=== PATIENT | female | born 1940 | race Caucasian/White ===

== ENCOUNTER 2020-03-02 22:07 | Emergency (ER) | payer MEDICARE ==
[~2020-03-02] VITALS: Ht 162.6 cm; Wt 83.9 kg
[2020-03-02] MEDS ORDERED: NAPROXEN500 MG PO (22:30)
--- OUTSIDE RECORDS SUMMARY | 2020-03-02 23:54 | XMS ---
PreManage Notification: HANNA ZUNIGA Security [employer] Events No recent Security Events currently on file CRITERIA MET - [facility] CARE PROVIDERS There are no care providers on record at this time. Víctor has no Care Guidelines for this patient. Yasir VISIT COUNT (12 MO.) 1 KRISTINE Castillo TOTAL 1 NOTE: Visits indicate total known visits. ED/C VISIT TRACKING (12 MO.) 03/02/2020 22:08 KRISTINE Ramirez [place] TYPE: Emergency COMPLAINT: - BACK PAIN, NON INJ INPATIENT VISIT TRACKING (12 MO.) No inpatient visits to display in this time frame [email or web address]
== END 2020-03-03 00:01 | disposition home or self-care (01) ==
LOC: ED 22:07
DX: M54.5 Low back pain (principal); I10 Essential (primary) hypertension; J44.9 Chronic obstructive pulmonary disease, unspecified; F17.200 Nicotine dependence, unspecified, uncomplicated; Z79.899 Other long term (current) drug therapy; Z88.8 Allergy status to other drugs, medicaments and biological substances
CPT/HCPCS: 74176; 81001; 99284-25

== ENCOUNTER 2020-04-05 15:55 | Emergency (ER) | payer MEDICARE ==
[~2020-04-05] VITALS: Ht 162.6 cm; Wt 81.6 kg
[~2020-04-05 15:55] MED LIST: NAPROXEN500 MG PO
--- OUTSIDE RECORDS SUMMARY | 2020-04-05 15:58 | XMS ---
PreManage Notification: HANNA ZUNIGA Security [employer] Events No recent Security Events currently on file CRITERIA MET - [facility] CARE PROVIDERS There are no care providers on record at this time. Víctor has no Care Guidelines for this patient. Yasir VISIT COUNT (12 MO.) 2 KRISTINE Castillo TOTAL 2 NOTE: Visits indicate total known visits. ED/C VISIT TRACKING (12 MO.) 04/05/2020 15:55 KRISTINE Ramirez OR TYPE: Emergency COMPLAINT: - TRIP OVER DOG, INJURED TOE ON LEFT FOOT 03/02/2020 22:08 KRISTINE Ramirez OR TYPE: Emergency COMPLAINT: - BACK PAIN, NON INJ DIAGNOSES: - Low back pain - Allergy status to other drugs, medicaments and biological substances - Low back pain - Other senior living (current) drug therapy - Essential (primary) hypertension - Chronic obstructive pulmonary disease, unspecified - Nicotine dependence, unspecified, uncomplicated - Cervicalgia INPATIENT VISIT TRACKING (12 MO.) No inpatient visits to display in this time frame [email or web address]
[2020-04-05] MEDS ORDERED: ULTRA-LIGHT RO1 EACH MISC (17:44)
[2020-04-05] MEDS ORDERED: NORCO 5-325 TA1 EACH PO (17:44)
== END 2020-04-05 18:40 | disposition home or self-care (01) ==
LOC: ED 15:55
DX: S92.312A Displaced fracture of first metatarsal bone, left foot, initial encounter for closed fracture (principal); S92.402A Displaced unspecified fracture of left great toe, initial encounter for closed fracture; I10 Essential (primary) hypertension; J44.9 Chronic obstructive pulmonary disease, unspecified; F17.200 Nicotine dependence, unspecified, uncomplicated; Z88.8 Allergy status to other drugs, medicaments and biological substances; Z79.899 Other long term (current) drug therapy; W01.0XXA Fall on same level from slipping, tripping and stumbling without subsequent striking against object, initial encounter
CPT/HCPCS: 73630; 99283-25

== ENCOUNTER 2021-10-17 01:43 | Emergency (ER) | payer MEDICARE ==
[~2021-10-17] VITALS: Ht 162.6 cm; Wt 81.6 kg
[~2021-10-17 01:43] MED LIST changes: +NORCO 5-325 TA1 EACH PO; +ULTRA-LIGHT RO1 EACH MISC
[2021-10-17] MEDS ORDERED: AMLODIPINE BESY10 MG PO (02:02)
[2021-10-17] MEDS ORDERED: LISINOPRIL-HCT1 EACH PO (02:02)
== END 2021-10-17 04:40 | disposition home or self-care (01) ==
LOC: ED 01:43
DX: T78.3XXA Angioneurotic edema, initial encounter (principal); I10 Essential (primary) hypertension; J44.9 Chronic obstructive pulmonary disease, unspecified; F17.200 Nicotine dependence, unspecified, uncomplicated; Z88.8 Allergy status to other drugs, medicaments and biological substances; Z79.899 Other long term (current) drug therapy
CPT/HCPCS: 96374; 96375; 99284-25; J1200; J2930

== ENCOUNTER 2024-01-15 14:03 | Observation (INO) | payer MEDICARE ==
[~2024-01-15] VITALS: Ht 162.6 cm; Wt 72.1 kg
[~2024-01-15 14:03] MED LIST changes: +AMLODIPINE BESY10 MG PO; +CHLORTHALIDONE25 MG PO; +FLUOXETINE HCL40 MG PO; +HYDROCODON-ACE1 EA10 PO; +LISINOPRIL-HCT1 EACH PO; +QUETIAPINE FUMA50 MG PO; +SPIRONOLACTONE50 MG PO
[2024-01-15 14:21] LABS: BILIRUBIN, URINE NEGATIVE (negative); BLOOD/HGB, URINE NEGATIVE (Negative); KETONE, URINE NEGATIVE (Negative); LEUK ESTERASE, URINE NEGATIVE (negative); NITRITE, URINE NEGATIVE (negative)
[2024-01-15 16:34] LABS: HEMATOCRIT 38.8 % (35.0-50.0); HEMOGLOBIN 12.7 g/dL (12.0-18.0); MCH 29.1 (27-36); MCHC 32.9 g/dl (30-36); MCV 88.7 fl (81-99); PLATELET COUNT 260 K/uL (140-440); RBC 4.37 M/ul (4.3-5.7); RDW 14.3 (10.5-15.0)
[2024-01-15 16:44] LABS: LYMPHOCYTES, MANUAL DIFF 14; MONOCYTES, MANUAL DIFF 13; NEUTROPHILS, MANUAL DIFF 73
[2024-01-15 16:48] LABS: ALBUMIN 3.4 g/dL (3.4-5.0); ALBUMIN/GLOBULIN RATIO 0.97 (1.1-2.4); ANION GAP 13.9 (7-21); BILIRUBIN, TOTAL 0.5 ng/dL (0.2-1.0); BUN/CREATININE RATIO 20.98 (6.0-28.6); CALCIUM 9.1 mg/dL (8.5-10.1); CREATININE, SERUM 0.81 mg/dL (0.55-1.02); POTASSIUM 2.9 mmol/L (3.5-5.1); PROTEIN, TOTAL 6.9 g/dL (6.4-8.2)
[2024-01-15] MEDS ORDERED: POTASSIUM CHLORIDE 10 MEQ TABCR PO ONE (17:00)
[2024-01-15] MEDS ORDERED: ACETAMINOPHEN 325 MG TAB PO PRN (17:30)
[2024-01-15] MEDS ORDERED: ondansetron HCL 4 MG/2 ML VIAL IV PRN (17:30)
--- NOTE | 2024-01-15 18:06 | NUR ---
PT TO FLOOR VIA STRETCHER WITH THIS RN AND JENNIFER CARPENTER. PT SCOOTED OVER ON SLIDER SHEET. ASSESSMENT COMPLETE. TRIED TO ORDER DINNER BUT NO ANSWER. GIVEN SANDWICH BOX.
[2024-01-15 18:13] VITALS: BP 132/67
--- NOTE | 2024-01-15 18:47 | NUR ---
PT RESTING IN BED. FINISHED WITH MEAL. INCONT OF URINE. BRIEF CHANGED. DENIES ANY NEEDS. ASSESSMENT COMPLETE. CALL LIGHT IN REACH.
--- NOTE | 2024-01-15 18:54 | NUR ---
[place] PLACED. SCD ON UNAFFECTED LEG. PT DENIES ANY NEEDS. CALL LIGHT IN REACH
--- NOTE | 2024-01-15 19:15 | NUR ---
REPORT RECEIVED FROM JACOB PLUMMER. pt RESTING IN THE BED WITH RIGHT KNEE IMOBILIZER ON. BOARD UPDATED. pt DENIES ANY OTHER NEEDS AT THIS THIS TIME. CALL LIGHT WITHIN REACH.
--- NOTE | 2024-01-15 20:50 | NUR ---
ASSESSMENT AND VITAL SIGNS DONE. pt RESTING IN THE BED. PURE WICK CHECKED AND READJUSTED FOR COMFORT. RIGHT KNEE IMOBILIZER IS ON. pt DENIES ANY NEEDS AT THIS TIME. CALL LIGHT WITHIN REACH.
[2024-01-15 20:54] VITALS: BP 113/52
[2024-01-15 20:57] VITALS: BP 113/52
[2024-01-15] MEDS ORDERED: MELATONIN 3 MG TAB PO PRN (21:00)
--- NOTE | 2024-01-15 23:33 | NUR ---
pt RESTING IN THE BED WITH EYES CLOSED. RR EVEN AND UNLABORED. CALL LIGHT WITHIN REACH.
[2024-01-16 01:50] VITALS: BP 108/60
--- NOTE | 2024-01-16 02:05 | NUR ---
END PACKER WENT IN TO DO 0200 VS AND CHECK THE OUTPUT OF THE PURE WICK. THERE WAS NO OUTPUT SO END PACKER CHECKED THE BRIEF. THE PURE WICK WAS OUT OF POSSITION AND THE BRIEF WAS WET. END PACKER CHANGED PT AND REPOSSITED THE PURE WICK. END PACKER'S BOOSTED PATIENT IN BED WELL.
[2024-01-16 05:10] VITALS: BP 132/68
[2024-01-16 05:17] VITALS: BP 132/68
--- NOTE | 2024-01-16 05:20 | NUR ---
ASSESSMENT AND VITAL SIGNS DONE. PURE WICK STILL IN PLACE. pt C/O 09/12 PAIN. PRN PAIN MEDICATION ADMINISTERED. pt DENIES ANY OTHER NEEDS AT THIS TIME. CALL LIGHT TIME.
[2024-01-16 05:31] LABS: HEMATOCRIT 38.3 % (35.0-50.0); HEMOGLOBIN 12.4 g/dL (12.0-18.0); MCH 29.2 (27-36); MCHC 32.4 g/dl (30-36); MCV 89.9 fl (81-99); PLATELET COUNT 267 K/uL (140-440); RBC 4.26 M/ul (4.3-5.7); RDW 14.1 (10.5-15.0)
[2024-01-16 05:46] LABS: BANDS, MANUAL DIFF 3; EOSINOPHILS, MANUAL DIFF 1; LYMPHOCYTES, MANUAL DIFF 36; MONOCYTES, MANUAL DIFF 8; NEUTROPHILS, MANUAL DIFF 52
[2024-01-16 05:49] LABS: ALBUMIN 3.1 g/dL (3.4-5.0); ALBUMIN/GLOBULIN RATIO 0.89 (1.1-2.4); ANION GAP 11.2 (7-21); BILIRUBIN, TOTAL 0.6 ng/dL (0.2-1.0); BUN/CREATININE RATIO 19.17 (6.0-28.6); CALCIUM 8.8 mg/dL (8.5-10.1); CREATININE, SERUM 0.73 mg/dL (0.55-1.02); PHOSPHORUS, INORGANIC 3.5 mg/dL (2.5-4.9); POTASSIUM 3.2 mmol/L (3.5-5.1); PROTEIN, TOTAL 6.6 g/dL (6.4-8.2)
[2024-01-16] MEDS ORDERED: POTASSIUM CHLORIDE 10 MEQ TABCR PO ONE (07:45)
--- NOTE | 2024-01-16 08:47 | NUR ---
MORNING ASSESSMENT IS COMPLETE. PATIENT IS SITTING UP IN BED TO EAT BREAKFAST, PO KCL GIVEN, NICOTINE PATCH TO LEFT ARM. PATIENT DENIES PAIN, NO OTHER NEEDS AT THIS TIME.
[2024-01-16] MEDS ORDERED: NICOTINE 21 MG/24 HR 1 EA TDSY TD SCH (09:00)
[2024-01-16 09:59] VITALS: BP 101/47
--- NOTE | 2024-01-16 10:26 | NUR ---
MED REC COMPLETE
--- NOTE | 2024-01-16 10:30 | NUR ---
UR CLINICAL REVIEW: 2 MN FOR VERSALUS-MEETS OBS CRITERIA MEDICARE OBS 01/15/24 @ 1405 ORDER MATCHES REG NO AUTH REQUIRED PER MEDICARE GUIDELINES DISCHARGE TO HOME WHEN FAMILY IS AVAILABLE TO MONITOR PATIENT. 01/17/24
[2024-01-16] MEDS ORDERED: FLUOXETINE HCL 20 MG CAP PO SCH (10:45)
--- NOTE | 2024-01-16 11:01 | NUR ---
CALLED DAUGHTER, LITO, NO ANSWER. MESSAGE LEFT TO CALL BACK WITH CALL BACK NUMBER PROVIDED.
--- NOTE | 2024-01-16 11:35 | NUR ---
SPOKE WITH DAUGHTER REGARDING DC. PLAN TO DC TO HOME THIS EVENING WHEN DAUGHTER RETURNS TO [place]. DISCUSSED [employer], HOME HEALTH PT/OT AND NEED FROM FRONT WALKER.
[2024-01-16] MEDS ORDERED: PHARMACY RENAL DOSE ADJUSTMENT 1 DOSE MISC PO SCH (12:00)
--- NOTE | 2024-01-16 13:03 | NUR ---
PRESCRIPTION, FACESHEET AND PROG NOTES FAXED TO [facility] FOR FRONT-WHEELED WALKER. ORDERS/FACE TO FACE, FACESHEET, PT/OT NOTES AND PROG NOTES FAXED TO [facility].
[2024-01-16 13:48] VITALS: BP 138/60
--- NOTE | 2024-01-16 13:55 | NUR ---
PATIENT WITH LOW GRADE TEMP, DR. LEAL NOTIFIED.
[2024-01-16 14:41] LABS: INFLUENZA B NAA NEGATIVE (NEGATIVE); RESPIRATORY SYNCYTIAL VIR NAA NEGATIVE (NEGATIVE)
[2024-01-16 15:07] VITALS: BP 138/60
--- NOTE | 2024-01-16 18:06 | NUR ---
PATIENT IS SITTING UP IN CHAIR, ANXIOUSLY AWAITING HER DAUGHTERS ARRIVAL.
[2024-01-16] MEDS ORDERED: QUETIAPINE FUMARATE 25 MG TAB PO SCH (21:00)
== END 2024-01-16 18:35 | disposition home or self-care (01) ==
LOC: ED 14:03 → MS 14:05
PROVIDERS: Emergency Medicine; ADMIT Family Medicine; ATTEND Family Medicine
DX: S82.001A Unspecified fracture of right patella, initial encounter for closed fracture (principal); E87.6 Hypokalemia; D72.829 Elevated white blood cell count, unspecified; I10 Essential (primary) hypertension; J44.9 Chronic obstructive pulmonary disease, unspecified; F17.200 Nicotine dependence, unspecified, uncomplicated; Z88.8 Allergy status to other drugs, medicaments and biological substances; Z79.899 Other long term (current) drug therapy; W18.30XA Fall on same level, unspecified, initial encounter
CPT/HCPCS: 36415; 71045; 73560; 80053; 81003; 83735; 84100; 85025; 87502; 97110; 97161; 97166; 97530; 99284-25; A9270; G0378; U0002

== ENCOUNTER 2025-01-30 04:16 | Emergency (ER) | payer MEDICARE ==
[~2025-01-30] VITALS: Ht 162.6 cm; Wt 70.8 kg
[2025-01-30] MEDS ORDERED: TRAMADOL HCL 50 MG TAB PO ONE (04:30)
[2025-01-30] MEDS ORDERED: TRAMADOL HCL50 MG PO (04:49)
[2025-01-30] MEDS ORDERED: TRAMADOL HCL 50 MG HOME.PACK PO ONE (05:00)
[2025-01-30 05:48] VITALS: BP 142/70
== END 2025-01-30 05:49 | disposition home or self-care (01) ==
LOC: ED 04:16
DX: S52.572A Other intraarticular fracture of lower end of left radius, initial encounter for closed fracture (principal); I10 Essential (primary) hypertension; J44.9 Chronic obstructive pulmonary disease, unspecified; F17.200 Nicotine dependence, unspecified, uncomplicated; Z91.048 Other nonmedicinal substance allergy status; Z88.8 Allergy status to other drugs, medicaments and biological substances; Z79.899 Other long term (current) drug therapy; W19.XXXA Unspecified fall, initial encounter
CPT/HCPCS: 29125; 73110; 99283; A9270

== ENCOUNTER 2025-02-01 15:18 | Emergency (ER) | payer MEDICARE ==
[~2025-02-01] VITALS: Ht 162.6 cm; Wt 70.8 kg
[~2025-02-01 15:18] MED LIST changes: +TRAMADOL HCL50 MG PO
[2025-02-01] MEDS ORDERED: FLUCONAZOLE150 MG PO (18:41)
[2025-02-01] MEDS ORDERED: NYAMYC15 GM TOP (18:41)
[2025-02-01] MEDS ORDERED: HYDROCODON-ACE1 EA10 PO (18:41)
[2025-02-01] MEDS ORDERED: FLUCONAZOLE 150 MG TAB PO ONE (18:45)
[2025-02-01 18:55] VITALS: BP 112/78
== END 2025-02-01 18:55 | disposition home or self-care (01) ==
LOC: ED 15:18
DX: S52.502D Unspecified fracture of the lower end of left radius, subsequent encounter for closed fracture with routine healing (principal); W19.XXXD Unspecified fall, subsequent encounter; B37.2 Candidiasis of skin and nail; I10 Essential (primary) hypertension; J44.9 Chronic obstructive pulmonary disease, unspecified; F03.90 Unspecified dementia, unspecified severity, without behavioral disturbance, psychotic disturbance, mood disturbance, and anxiety; F17.200 Nicotine dependence, unspecified, uncomplicated; Z88.8 Allergy status to other drugs, medicaments and biological substances; Z79.899 Other long term (current) drug therapy
CPT/HCPCS: 70450; 73030; 99284-25

== ENCOUNTER 2025-02-10 06:40 | Day surgery (SDC) | payer MEDICARE ==
[~2025-02-10] VITALS: Ht 162.6 cm; Wt 70.4 kg
[~2025-02-10 06:40] MED LIST changes: +DEXAMETHASONE SOD PHOS 4 MG/ML VIAL ONE; +FLUCONAZOLE150 MG PO; +LACTATED RINGER'S 1,000 ML IV SCH; +LIDOCAINE HCL 2% 5 ML SDV ONE; +NYAMYC15 GM TOP; +Ropivacaine HCl 0.5% 30 ML VIAL ONE; +SODIUM CHLORIDE 0.9% 20 ML IV ONE
[2025-02-10] MEDS ORDERED: IBLOOD GLUCOSE TEST STRIP 1 EA TEST VI PRN ×2 (07:00→09:15)
[2025-02-10] MEDS ORDERED: DEXTROSE 5% IV SCH (07:00)
[2025-02-10] MEDS ORDERED: LIDOCAINE HCL 1% 5 ML SDV INJ ONE (07:00)
[2025-02-10] MEDS ORDERED: CEFAZOLIN SODIUM IV SCH (07:00)
[2025-02-10 07:07] VITALS: BP 140/69
--- NOTE | 2025-02-10 07:24 | NUR ---
PT NOT AVAILABLE FOR VISIT. PROVIDED PRAYER.
--- NOTE | 2025-02-10 07:29 | NUR ---
PT NOT AVAILABLE FOR VISIT. PROVIDED PRAYER.
[2025-02-10] MEDS ORDERED: HYDROCODONE/ACETA 5/325 TAB PO PRN (08:15)
[2025-02-10] MEDS ORDERED: HYDROCODON-ACE1 EA10 PO (09:12)
[2025-02-10] MEDS ORDERED: fentaNYL citrate 50 MCG/ML SDV IV PRN (09:15)
[2025-02-10] MEDS ORDERED: MIDAZOLAM HCL 2 MG/2 ML VIAL IV PRN (09:15)
[2025-02-10] MEDS ORDERED: NALOXONE HCL 0.4 MG SYR IV PRN (09:15)
--- NOTE | 2025-02-10 09:26 | NUR ---
02/10/25 0926 Alley Montez 0911 PT TO PACU ORAL AIRWAY IN PLACE. BREATHING REGULAR AND NOT LABORED.
--- NOTE | 2025-02-10 09:47 | NUR ---
PT ARRIVES TO DS VIA STRETCHER FROM PACU. PT IS BACK TO BASELINE AND ASKING QUESTIONS APPROPRIATELY. PT STATES NO PAIN AT THIS TIME AND IS SLIGHTLY ABLE TO WIGGLE PINKIE AND FINGER NEXT TO IT. PT TOLERATING JELLO AND ICE WATER WITHOUT DIFFICULTY SWALLOWING. CALL LIGHT WITHIN REACH, DOOR OPEN D/T PT HX OF DEMENTIA AND PT VISIBLE FROM NURSES STATION. DAUGHTER LITO CALLED AND UPDATED, ADVISED TO BRING SLING FOR PT D/T NERVE BLOCK LIMITING MOTOR SKILL IN LFT ARM. PT DAUGHTER STATES VERBAL UNDERSTANDING. PT STATES NO FURTHER NEEDS OR QUESTIONS AT THIS TIME.
[2025-02-10 09:50] VITALS: BP 147/62
[2025-02-10 10:31] VITALS: BP 127/73
--- NOTE | 2025-02-10 10:45 | NUR ---
IN PT ROOM FOR DC EDUCATION. PT AND PT DAUGHTER STATE VERBAL UNDERSTANDING AND NO FURTHER QUESTIONS OR NEEDS AT THIS TIME. ICE PACK PROVIDED, SLING IN PLACE, ICE WATER SENT HOME W/PT. PT OFF OF UNIT VIA WC TO PASSENGER SIDE OF VEHICLE. PT DAUGHTER ASSISTS PT W/TRANSITION TO SEAT PER "WHAT WORKS FOR THEM". ALL BELONGINGS IN PT POSSESSION. PT AND PT DAUGHTER STATE NO FURTHER NEEDS AT THIS TIME.
--- NOTE | 2025-02-10 14:35 | NUR ---
PT DAUGHTER ARRIVES AND BRINGS SLING. VS AND ASSESSMENT PERFORMED. NO ACUTE CHANGES FROM PREVIOUS ASSESSMENT. PT GETTING DRESSED W/DAUGHTER ASSISTANCE. CALL LIGHT WITHIN REACH.
[2025-02-10] MEDS ORDERED: SEVOFLURANE 250 ML BTL INH ONE (16:56)
--- NOTE | 2025-02-10 23:23 | EKG ---
[facility] [address] [place] [address] Signed Sinus rhythm with occasional premature ventricular complexes Otherwise normal ECG No previous ECGs available Confirmed by Seymour Leal MD () on 02/10/2025 11:23:29 PM Electronically Signed By: SEYMOUR LEAL MD 02/10/25 2323 PATIENT NAME: HANNA ZUNIGA JASEN Electrocardiogram DATE OF : 44 PHYSICIAN: SEYMOUR LEAL MD REPORT #: [id number] REPORT IS CONFIDENTIAL AND NOT TO BE RELEASED WITHOUT AUTHORIZATION
--- NOTE | 2025-02-12 07:54 | OR ---
[facility] [address] [place] [address] Signed DATE OF OPERATION: 02/10/2025 SURGEON: Lulu Montez MD PREOPERATIVE DIAGNOSIS: Comminuted displaced left distal radius fracture. POSTOPERATIVE DIAGNOSIS: Comminuted displaced left distal radius fracture. PROCEDURE PERFORMED: Open reduction and internal fixation, left distal radius. IGNITION MECHANIC: None. ANESTHESIA: General. BLOOD LOSS: None. TOURNIQUET TIME: 24 minutes. IMPLANTS: Synthes bridge plate with eight screws and one 1.6 K-wire. BRIEF HISTORY: Sarah is an 84-year-old lady with significant dementia who suffered a ground level fall with a displaced distal radius fracture. She had significant osteopenia as well. She took off her splint multiple times and further displaced the fracture. Risks and benefits of operative treatment with a bridge plate were discussed with her and her daughter. They elected to proceed. DESCRIPTION OF PROCEDURE: Once the consent was obtained, she was taken to the operating room. After adequate anesthesia, she was placed on operating room table. All downside pressure points were well padded. The arm was prepped and draped in a standard sterile fashion. A sterile tourniquet was applied. The fracture was closed reduced and pinned with 1.6 mm K-wire. Electronically Signed By: LULU MONTEZ MD 02/12/25 0754 PATIENT NAME: SARAH ZUNIGA OPERATIVE REPORT DATE OF : 44 REPORT #: [id number] PHYSICIAN: LULU MONTEZ MD PCP: LESLYE HILLIARD NP REPORT IS CONFIDENTIAL AND NOT TO BE RELEASED WITHOUT AUTHORIZATION [facility] [address] [place], [place] [address] Signed The bridge plate was then overlaid. The distal radius and hand and the two incisions were marked out. The arm was exsanguinated using Esmarch bandage. Tourniquet inflated to 200 mmHg. The two incisions were incised, carried through skin and subcutaneous tissue and directly down onto the radius dorsally and the dorsal metacarpal. The plate was then tunneled subcutaneously from the proximal to the distal incision and then aligned under image intensifier. One screw was placed distal, one placed proximal. Alignment was found to be adequate. Screw holes were drilled and appropriate length screws were placed. Final radiographs showed good reduction and alignment of the plate. Screw lengths were all appropriate. Wounds were then copiously irrigated with normal saline, closed with 3-0 Stratafix and sealed with LiquiBand and Steri-Strips. Sterile cast padding was applied and a radial gutter splint was applied. She tolerated this procedure well. All sponge, needle, and instrument counts were correct. Lulu Montez MD BA/ENRIQUE /[id number] Copies: ~ Electronically Signed By: LULU MONTEZ MD 02/12/25 0754 PATIENT NAME: SARAH ZUNIGA OPERATIVE REPORT DATE OF : 44 REPORT #: [id number] PHYSICIAN: LULU MONTEZ MD PCP: LESLYE HILLIARD NP REPORT IS CONFIDENTIAL AND NOT TO BE RELEASED WITHOUT AUTHORIZATION
== END 2025-02-10 10:50 | disposition home or self-care (01) ==
LOC: DS 06:40
PROVIDERS: ATTEND Specialist
PROC: 0PSJ04Z Reposition Left Radius with Internal Fixation Device, Open Approach (ICD-10-PCS; principal; 2025-02-10 09:00)
DX: S52.572A Other intraarticular fracture of lower end of left radius, initial encounter for closed fracture (principal); W18.30XA Fall on same level, unspecified, initial encounter; I10 Essential (primary) hypertension; F03.90 Unspecified dementia, unspecified severity, without behavioral disturbance, psychotic disturbance, mood disturbance, and anxiety; M85.80 Other specified disorders of bone density and structure, unspecified site; F17.200 Nicotine dependence, unspecified, uncomplicated; Z79.899 Other long term (current) drug therapy; Z88.8 Allergy status to other drugs, medicaments and biological substances
CPT/HCPCS: 01830; 64417; 73100; 93005; 93010; C1713; J0688; J1100; J2003; J2405; J2704; J2795; J7121

== ENCOUNTER 2025-02-21 07:20 | Inpatient (IN) | payer MEDICARE ==
[~2025-02-21] VITALS: Ht 162.6 cm; Wt 70.0 kg
[2025-02-21] VITALS (11 sets, daily range): BP systolic 113–161; BP diastolic 58–88
[~2025-02-21 07:20] MED LIST changes: +CEFAZOLIN SODIUM 2 GM in SODIUM CHLORIDE 0.9% 100 ML IV SCH; -DEXAMETHASONE SOD PHOS 4 MG/ML VIAL ONE; +IBLOOD GLUCOSE TEST STRIP 1 EA TEST VI PRN; +LIDOCAINE HCL 1% 5 ML SDV INJ ONE; -LIDOCAINE HCL 2% 5 ML SDV ONE; -Ropivacaine HCl 0.5% 30 ML VIAL ONE; -SODIUM CHLORIDE 0.9% 20 ML IV ONE
[2025-02-21] MEDS ORDERED: Ropivacaine HCl 0.5% 30 ML VIAL ONE (09:27)
[2025-02-21] MEDS ORDERED: SODIUM CHLORIDE 0.9% 20 ML IV ONE (09:27)
[2025-02-21] MEDS ORDERED: LIDOCAINE HCL 2% 5 ML SDV ONE ×2 (09:27→10:18)
--- NOTE | 2025-02-21 09:59 | NUR ---
tunnel heading inspector ap in to do block l arm.
[2025-02-21] MEDS ORDERED: fentaNYL citrate 100 MCG/2 ML VIAL ONE (10:20)
[2025-02-21] MEDS ORDERED: HYDROmorphone HCL 1 MG/ML SYR IV PRN (11:00)
[2025-02-21] MEDS ORDERED: IBLOOD GLUCOSE TEST STRIP 1 EA TEST VI PRN (11:00)
[2025-02-21] MEDS ORDERED: NALOXONE HCL 0.4 MG SYR IV PRN (11:00)
[2025-02-21] MEDS ORDERED: fentaNYL citrate 50 MCG/ML SDV IV PRN (11:00)
[2025-02-21] MEDS ORDERED: HYDROCODONE/ACETA 7.5/325 TAB PO PRN (11:30)
--- NOTE | 2025-02-21 12:10 | NUR ---
[facility], AMBULATES TO RESTROOM WITH 1PA, VOIDS, AMBULATES TO BED AND LAYS IN BED INDEPENDENTLY. 2L O2 VIA NC IN PLACE D/T O2 SATURATION BEING IN LOW 80s ON RA. PT HAS HARSH PRODUCTIVE COUGH. SCDs IN PLACE. ICE TO LUE PER ORDER, LUE ELEVATED ON PILLOW. HEEL PROTECTORS IN PLACE, CPOX IN PLACE. PT DENIES CP AND NAUSEA, DENIES PAIN IN LUE. PT STATES SHE IS "ITCHY" ALL OVER HER BODY, EDUCATION ON EFFECTS OF ANASTHESIA, PT VERBALIZES UNDERSTANDING. PT DISORIENTED TO DATE AND EVENT, ORIENTED TO SELF, TIME AND PLACE. PT STATES NO CURRENT NEEDS. CALL LIGHT EDUCATION, PT VERBALIZES UNDERSTANDING. BED ALARM ON FOR SAFETY.
[2025-02-21] MEDS ORDERED: QUETIAPINE FUMA25 MG PO (12:35)
[2025-02-21] MEDS ORDERED: SEVOFLURANE 250 ML BTL INH ONE (13:02)
--- NOTE | 2025-02-21 14:01 | NUR ---
FAMILY AT BEDSIDE, QUESTIONS ANSWERED. PT UP TO RESTROOM WITH SHIP'S MASTER, PT BACK TO BED. CALL LIGHT WITHIN REACH.
--- NOTE | 2025-02-21 14:02 | NUR ---
PATIENT IN BED A THIS TIME. BOW MAKING MACHINE OPERATOR ASSISTED PATIENT TO BATHROOM AND THEN BACK TO BED. CALL LIGHT WITHIN REACH, NO FURTHER NEEDS AT THIS TIME.
--- NOTE | 2025-02-21 14:14 | NUR ---
PT TOLERATING COFFEE THAT FAMILY BROUGHT IN, REGULAR DIET ORDERED FOR DINNER, PT DENIES ANY NAUSEA.
--- NOTE | 2025-02-21 15:01 | NUR ---
MED REC COMPLETE
--- NOTE | 2025-02-21 15:35 | NUR ---
UR CLINICAL REVIEW: 2 MN ZHANNA, MEETS INPT FOR WRIST ORIF WITH POST OP DETACHMENT OF PLATE SURGICAL INTERVENTION, IV FLUIDS, IV ANTIBIOTICS, IV ANALGESICS, PT/OT EVAL AND TREAT MEDICARE INPT 02/21/2025 @ 1124 ORDER MATCHES REG NO AUTH REQUIRED PER MEDICARE RULES DC TO SNF WHEN MEDICALLY CLEARED.
--- NOTE | 2025-02-21 16:44 | NUR ---
PT HAS QUESTIONS REGARDING WHEN SHE IS GOING HOME, PT REORIENTED TO POC. PT STATES SHE WOULD LIKE TO CALL HER DAUGHTER, PT ASSISTED IN CALLING HER DAUGHTER, PT STATES NO FURTHER NEEDS AT THIS TIME, CALL LIGHT WITHIN REACH. BED ALARM ON FOR SAFETY.
--- NOTE | 2025-02-21 16:52 | OR ---
[facility] [address] [place], [place] [address] Signed DATE OF OPERATION: 02/21/2025 SURGEON: Lulu Montez MD PREOPERATIVE DIAGNOSIS: Left distal radius fracture status post bridge plate. POSTOPERATIVE DIAGNOSIS: Left distal radius fracture status post bridge plate, failure of fixation. PROCEDURE PERFORMED: Revision open reduction and internal fixation, distal radius. SIGNAL WIRER: None. ANESTHESIA: General. BLOOD LOSS: 50 mL. IMPLANTS: 2.7 screws. BRIEF HISTORY: Sarah is an 84-year-old patient with Alzheimer's, who underwent a bridge plate for fixation of her distal radius. She got out of her postoperative splint and moved her hand tearing the screws out of her metacarpal. Risks and benefits of repeat ORIF with large screws and a FiberTape cerclage were discussed with the daughter and she elected to proceed. DESCRIPTION OF PROCEDURE: Once consent was obtained, the patient was taken to the operating room. After adequate anesthesia, she was placed on operating table. All downside pressure points were well padded. The left arm was prepped and draped in a standard sterile fashion. The distal incision was then opened up and the prior screws were removed. They were grossly loose and removed with a mosquito. The metacarpal was then centered on the plate and a 2.0 drill was used to drill an oblique hole and a second screw hole under image intensifier guidance. This was done angling distally and radially. A 2.7 screw was placed in this Electronically Signed By: LULU MONTEZ MD 02/21/25 1652 PATIENT NAME: SARAH ZUNIGA OPERATIVE REPORT DATE OF : 44 REPORT #: [id number] PHYSICIAN: LULU MONTEZ MD PCP: LESLYE HILLIARD NP REPORT IS CONFIDENTIAL AND NOT TO BE RELEASED WITHOUT AUTHORIZATION [facility] [address] [place], [place] [address] Signed with reasonably good bite. The prior screws were 2.4. The remaining three drill holes were drilled again at eccentric angles and 2.7 screws were placed with reasonably good bite on the bone. We then utilized a Hewson suture passer and after careful dissection around the metacarpal, we were able to pass the Hewson directly on the bone around the volar surface of the metacarpal under image intensifier guidance. This was done to avoid the flexor tendon and the neurovascular bundles. This was done and tightened and tied over the plate creating some secondary fixation. Once this was completed, the final radiograph showed good reduction and good plate placement and screw lengths were appropriate. The wound was copiously irrigated with antibiotic solution, closed with 2-0 Monocryl and chris. Wound was dressed with Allevyn and a bulky hand dressing. She tolerated the procedure well. All sponge, needle, and instrument counts were correct. Lulu Montez MD BA/ENRIQUE /[id number] Copies: ~ Electronically Signed By: LULU MONTEZ MD 02/21/25 1652 PATIENT NAME: SARAH ZUNIGA JASEN OPERATIVE REPORT DATE OF : 44 REPORT #: [id number] PHYSICIAN: LULU MONTEZ MD PCP: LESLYE HILLIARD NP REPORT IS CONFIDENTIAL AND NOT TO BE RELEASED WITHOUT AUTHORIZATION
[2025-02-21] MEDS ORDERED: CEFAZOLIN SODIUM 2 GM in SODIUM CHLORIDE 0.9% 100 ML IV SCH (17:00)
--- NOTE | 2025-02-21 17:49 | NUR ---
02/21/25 1749 Fabi Mays 1124- PT PRESENTS TO PACU, SEMI GUO POSITION, NON REACTIVE TO STIMULUS. OPA IN PLACE, BREATHING EVEN AND NON LABORED WITH 6L O2 PER MASK. LR INFUSING TO RH IV. LARGE SPLINT TO LEFT HAND, CDI, ELEVATED ON PILLOWS. 1140- PT WAKES TO VERBAL STIMULUS AND SPITS OPA OUT. PT HAS HARSH COUGH, SMOKER. PT REORIENTED TO TIME AND PLACE. ICE PLACED TO LEFT WRIST. 1143- PT MOVED TO ROOM AIR AT THIS TIME. DENIES PAIN OR NAUSEA. 1151- PT O2 SATS DROP TO 87% ON ROOM AIR, COUGH AND DEEP BREATHS. O2 PLACED AT 2L PER NC AT THIS TIME. 1210- PT TAKEN TO MED/SURG VIA STRETCHER. SPLINT IN PLACE. NO SIGNS OF DISTRESS. LR HANGING TKO TO IV. REPORT TO JOVAN PLUMMER AT BEDSIDE. PT UP TO SIDE OF BED, THIS RN AND JOVAN RN ASSISTED PT TO BATHROOM, STEADY ON FEET. CARE OF PT TURNED OVER AT THIS TIME.
--- NOTE | 2025-02-21 18:01 | NUR ---
HOB ELEVATED FOR PT TO EAT DINNER, TRAY SET UP FOR PT. PT STATES NO FURTHER NEEDS AT THIS TIME, CALL LIGHT WITHIN REACH.
--- NOTE | 2025-02-21 20:05 | NUR ---
Pt moved from room 112 to room 111. Pt on room air, CPOX on at bedside, pt on room air, lungs dim at bases, denies SOB. R hand IV site SL patent. flushes easily. L hand dressing intact, elevated w pillows. thumb warm and pink, Denies c/o pain at this time. abd soft caroline Alert and oriented to all at this time, pleasant and cooperative with assessment. SCD's Alarms in place.
--- NOTE | 2025-02-21 23:11 | NUR ---
Resting, eyes closed, L arm elevated with pillows, no s/sx distress, bed alrms in place
[2025-02-22] VITALS (8 sets, daily range): BP systolic 127–169; BP diastolic 57–77
--- NOTE | 2025-02-22 01:11 | NUR ---
awake, watching tv, denies c/o pain. incontinent of urine, skin care, barrier cream applied, attends changed. helped with repostioning. L hand dressing CDI, removed ice, declines to have it place back. elevated with pillows, no c/o adverse reaction to iv abx
--- NOTE | 2025-02-22 03:28 | NUR ---
Resting, eys closed, on room air, cpox at bedside. destas to 79% and goes back up right away to 88-92%. awakens easily, L arm dressing in place, elevated with pillows, scds in place
--- NOTE | 2025-02-22 05:47 | NUR ---
PT REFUSED V/S AND PERSONAL CARE. THIS BULLION WEIGHER WAS ABLE TO CONFIRM THAT THE PT WAS DRY.
--- NOTE | 2025-02-22 07:28 | NUR ---
RECIEVED REPORT FROM ELIAN KWONG. PT SITTING UP IN CHAIR, CHAIR ALARM ON, CALL LIGHT IN REACH, SURVEY COMPILER'S AT BEDSIDE CHANGING LINEN ON BED, NO OTHER NEEDS AT THIS TIME.
--- NOTE | 2025-02-22 07:28 | NUR ---
PATIENT IN CHAIR AT THIS TIME. NURSE ADMINISTRATOR ASSISTED PATIEN TO BATHROOM FROM BED AND THEN BACK TO THE CHAIR. CHAIR ALARM IS ACTIVATED. CALL LIGHT WITHIN REACH, NO FURTHER NEEDS AT THIS TIME.
--- NOTE | 2025-02-22 08:30 | NUR ---
PATIENT REORIENTED TO PLACE AND EVENT. PULSE OX NOT READING, NEW PULSE OX APPLIED. PT SITTING UPRIGHT IN CHAIR, STATES NO PAIN, DOCTOR AT BEDSIDE ASSESSING PATIENT, CALL LIGHT IN REACH. PATIENT STATES SHE WOULD LIKE SOMETHING FOR HER SMOKE CRAVING, MD AWARE AND MD ORDERED A NICOTINE PATCH.
[2025-02-22] MEDS ORDERED: NICOTINE 7 MG/24 HR 1 EA TDSY TD SCH (09:00)
--- NOTE | 2025-02-22 10:09 | NUR ---
PTS DAUGHTER VISITING PATIENT AT BEDSIDE, QUESTIONS ANSWERED. CALL LIGHT IN REACH, NO OTHER NEEDS AT THIS TIME.
--- NOTE | 2025-02-22 10:27 | NUR ---
PATIENT ASSISTED TO THE BATHROOM WITH 1PA. BRIEF CHANGED, PT BACK IN CHAIR, LEGS ELEVATED, CALL LIGHT IN REACH. NO OTHER NEEDS AT THIS TIME.
--- NOTE | 2025-02-22 11:01 | NUR ---
PT AT BEDSIDE WORKING WITH PATIENT. DAUGHTER AT PATIENT ASKING QUESTIONS, CALL LIGHT IN REACH, NO OTHER NEEDS.
--- NOTE | 2025-02-22 11:40 | NUR ---
PATIENT ASSISTED TO THE RESTROOM 1PA. BRIEF CHANGED, PT BACK TO CHAIR WITH CHAIR ALARM ON, CALL LIGHT IN REACH NO OTHER NEEDS AT THIS TIME. DAUGHTER STILL VISITING AT THIS TIME.
--- NOTE | 2025-02-22 12:03 | NUR ---
THIS RN CALLS DR CALDERON REGARDING PTS IV LEAKING. STATES OKAY TO REMOVE IV AND NOT REPLACE IV.
--- NOTE | 2025-02-22 14:00 | NUR ---
ASSISTED PATIENT IN ANSWERING ROOM PHONE. PATIENT SPEAKING WITH SON ON THE PHONE, CALL LIGHT IN REACH, CHAIR ALARM ON, NO OTHER NEEDS AT THIS TIME.
--- NOTE | 2025-02-22 15:08 | NUR ---
PATIENT IN CHAIR AT THIS TIME. THIS WIND COMMISSIONING TECHNICIAN ASSISTED PATIENT TO BATHROOM AND THEN BACK TO CHAIR. PATIENTS CHAIR ALARM IS ACTIVATED, CALL LIGHT WITHIN REACH, NO FURTHER NEEDS AT THIS TIME.
--- NOTE | 2025-02-22 15:09 | NUR ---
PATIENT SITTING UP IN CHAIR, WATCHING TV. NO NEEDS AT THIS TIME, CALL LIGHT IN REACH, LEGS ELEVATED, CHAIR ALARM ON.
--- NOTE | 2025-02-22 16:30 | NUR ---
PATIENT GOT UP OUT OF CHAIR WITHOUT CALLING. CHAIR ALARM SET OFF BOTH TIMES. PATIENT AGITATED, STATING SHE IS BORED AND WANTS TO GO HOME. PATIENT HELPED TO THE RESTROOM, BACK IN CHAIR, CHAIR ALARM ON. REMINDED TO CALL STAFF TO GET UP. NO OTHER NEEDS AT THIS TIME. CALL LIGHT IN REACH.
--- NOTE | 2025-02-22 17:32 | NUR ---
DR CALDERON CALLED ABOUT PATIENT BEING MORE AGITATED AND SNAPPING AT STAFF. PATIENT ON ONE TO ONE CURRENTLY. STATES HE WILL ORDER MED TO CALM PATIENT DOWN.
--- NOTE | 2025-02-22 18:17 | NUR ---
DR. LEAL TO NURSES STATION, THIS RN REPORTS TO MD THAT DR. CALDERON STATED ON THE PHONE TO ASK FOR RECOMMENDATION FOR PSYCH MEDICATION PT IS INCREASINGLY AGITATED AND HAD JUST LEFT HER ROOM, WALKED DOWN HALLWAY RAISING VOICE TOWARDS STAFF. DR. LEAL STATES HE WOULD RECOMMEND FOR PT TO BE GIVEN HER PRESCRIBED HOME PSYCH MEDICATIONS. THIS RN CALLS DR. CALDERON TO UPDATE ON DR. LEAL'S RECOMMENDATION. DR. CALDERON STATES TO ORDER PT'S HOME PSYCH MEDICATIONS INCLUDING 50MG SEROQUEL QHS WITH FIRST DOSE TO START NOW, 12.5MG OF SEROQUEL PRN, AND 40MG FLUOXETINE QAM. ORDERS PLACED, REPEAT BACK PERFORMED.
[2025-02-22] MEDS ORDERED: QUETIAPINE FUMARATE 25 MG TAB PO SCH (18:45)
[2025-02-22] MEDS ORDERED: QUETIAPINE FUMARATE 25 MG TAB PO PRN (18:45)
--- NOTE | 2025-02-22 18:53 | NUR ---
DAUGHTER AT THE BEDSIDE.
--- NOTE | 2025-02-22 19:25 | NUR ---
Pt walked from chair to bed, Dressing L hand present. Pt slightly irritable mood but compliant. Declined to let RN assess lungs and complete assessment. visual assessment done. L arm dressing CDI. no IV site, In bed, Bed alrms in place.Received Beattie and Seroquel at change of shift. Will complete assessment when pt agrees. daugther in room.
--- NOTE | 2025-02-22 20:27 | NUR ---
Pt resting, on room air, sleeping soundly, no s/sx distress at this time. L arm dressing inplace, Bed alrm in place. Pt was medicated at change of shift for pain and with Seroquel. will complete assessment and vitals when she awakes.
--- NOTE | 2025-02-22 21:00 | NUR ---
Dr Reyes aware of above. "ok let her sleep" stated
--- NOTE | 2025-02-22 23:12 | NUR ---
RESTING, ON ROOM AIR, NO S/SX DISTRESS NOTED. L MID ARM DRESSING IN PLACE. BED ALARM IN PLACE
[2025-02-23] VITALS (10 sets, daily range): BP systolic 115–168; BP diastolic 51–82
--- NOTE | 2025-02-23 00:54 | NUR ---
RESTING, EYES CLOSED, TURNED SELF IN BED, L ARM DRESSING INTACT. BED ALRM IN PLACE, NO S/SX DISTRESS AT THIS TIME
--- NOTE | 2025-02-23 03:04 | NUR ---
Resting, eyes closed, no s/sx distress moving arms and legs, repositions self in bed
--- NOTE | 2025-02-23 04:40 | NUR ---
PATIENT WAS GETTING UP OUT OF BED WHEN I ENTERED THE ROOM. ELIAN KWONG HELPED ME GET PATIENT TO THE BATHROOM. PATIENT VOIDED 100 ML. PATIENT MADE IT BACK TO BED AND GOT A NEW BRIEF. ELIAN KWONG GAVE PATIENT PUDDING WITH HER MEDS AND WATER. PATIENT IS NOW TUCKED IN BED. NO FURTHER NEEDS AT THIS TIME AND CALL LIGHT WITHIN REACH.
--- NOTE | 2025-02-23 04:47 | NUR ---
Pt awake, moviang arms and trying to move in bed. Up to BRp, slow gait, 2PA. was incontinent, voided and had a smear of bm. Skin care, new attends in place. Back to bed, tolerated well. L dressing in place, moving L thumb and fingers under dressing pink, warm and able to wiggle them. c/o pain, medicated with 1 Turner, cut in half with puding, kept spitting them out but took it well, tolerating liquids well. Moist productive cough present, white phlegm. Cooperative with vitals and assessment. Lungs clear dim at bases. L hand elevated with pillows, declines ice to area. Bed alarm in place. Calm and cooperative
--- NOTE | 2025-02-23 07:10 | NUR ---
RECIEVED REPORT FROM ELIAN KWONG. PT RESTING IN BED WITH EYES CLOSED, BREATHING EVEN AND UNLABORED. BED ALARM ON FOR SAFETY, CALL LIGHT WITHIN REACH.
--- NOTE | 2025-02-23 08:03 | NUR ---
PT ASSISTED TO SIT UP IN BED FOR BREAKFAST, BREAKFAST TRAY SET UP, PT STATES NO FURTHER NEEDS AT THIS TIME, STATES SHE WOULD LIKE A PRN PAIN MEDICATION WITH HER MORNING MEDICATIONS. CALL LIGHT WITHIN REACH.
[2025-02-23] MEDS ORDERED: FLUOXETINE HCL 20 MG CAP PO SCH (09:00)
--- NOTE | 2025-02-23 09:08 | NUR ---
PT TAKES PT MEDICATIONS W/O DIFFICULTY, STATES NO FURTHER NEEDS AT THIS TIME. CALL LIGHT WITHIN REACH, BED ALARM ON FOR SAFETY.
--- NOTE | 2025-02-23 10:04 | NUR ---
PATIENT LAYING IN BED. VITAL SIGNS AND I&OS WERE DONE. PATIENTS WAS PROVIDED WITH A WARM WASHCLOTH. PATIENTS DECLINED TO BRUSH TEETH AND SHOWER DUE TO HER STATED SHE WOULD DO THAT AT HOME. PATIENTS CALL LIGHT IS WITHIN REACH AND NO FURTHER NEEDS AT THIS TIME.
--- NOTE | 2025-02-23 10:36 | NUR ---
PT WORKING WITH PHYSICAL THERAPY, STATES NO CURRENT NEEDS, CALL LIGHT WITHIN REACH.
--- NOTE | 2025-02-23 13:48 | NUR ---
PATIENT SITTING IN CHAIR. PATIENTS VITAL SIGNS AND I&OS WERE DONE. PATIENT DECLINED TO USE THE RESTROOM. PATIENTS CALL LIGHT IS WITHIN REACH AND NO FURTHER NEEDS AT THIS TIME.
--- NOTE | 2025-02-23 15:19 | NUR ---
PATIENT WAS ASSISTED SBA WITH FWW. PATIENT GOWN AND BRIEF WAS CHANGED. PATIENT IS WITTING IN CHAIR WITH ALARM ON. CALL LIGHT IS WITHIN REACH AND NO FURTHER NEEDS AT THIS TIME.
--- NOTE | 2025-02-23 16:40 | NUR ---
PATIENT WAS ASSISTED WITH FWW TO THE BATHROOM AND BACK TO THE CHAIR. PATIENTS REFUSED A SHOWER STATED SHE WOULD WHEN SHE GOT HOME. BRIEF WAS CHANGED. CALL LIGHT IS WITHIN REACH AND NO FURTHER NEEDS AT THIS TIME.
--- NOTE | 2025-02-23 17:03 | NUR ---
PT DAUGHTER AND GRANDSON TO BEDSIDE TO HAVE DINNER WITH PATIENT. NO NEEDS STATED AT THIS TIME, CALL LIGHT WITHIN REACH.
--- NOTE | 2025-02-23 20:24 | NUR ---
On room air, lungs dim at bases. abd soft, no c/o pain, edema to toes trace. No IV. L arm dressing CDI, thumb pink warm, wigles all L fingers. Cooperative with assessments
--- NOTE | 2025-02-24 01:03 | NUR ---
Reesting, eyes closed, on room air, no s/sx distress, L hand dressing CDI, elevated w pillows. Bed alarm in place
--- NOTE | 2025-02-24 02:49 | NUR ---
BED ALARM GOING OFF. AWAKE, UP TO BRP WITH ONE ASSIST, ATTENDS DRY, VOIDED. COOPERATIVE, BACK TO BED, GOT SELF INTO BED, TOLERATED WEL L ARM DRESSING CDI, INTACT CMS, MOVING FINGERS WELL, SKIN WARM AND DRY. BED ALARM IN PLACE
--- NOTE | 2025-02-24 04:33 | NUR ---
Repositions self in bed, on room air, L wrist elevated in pillows. Bed alrm in place. Eyes closed,
[2025-02-24 05:40] VITALS: BP 120/57
--- NOTE | 2025-02-24 07:21 | NUR ---
PT RESTING IN BED WITH BED ALARM ON AND CALL LIGHT WITHIN REACH. REPORT RECEIVED FROM VARGHESE PLUMMER
--- NOTE | 2025-02-24 07:23 | NUR ---
updates sent to [facility].
--- NOTE | 2025-02-24 07:55 | NUR ---
ASSISTED PT IN AMBULATING TO RESTROOM TO VOID, ALSO HAD URINATED IN HER BRIEF. BRIEF CHANGED. PT TOLERATED WELL. PT IN CHAIR WITH LEGS ELEVATED, CHAIR ALARM ON, AND CALL LIGHT WITHIN REACH.
--- NOTE | 2025-02-24 08:00 | NUR ---
PT C/O BACK ITCHING. CLEANED PT'S BACK AND APPLIED LOTION. PT STATES "THAT FEELS BETTER". PT HAS SCRATCH YOUNG/SCABS ON HER BACK - ENCOURAGED PT TO NOT ITCH.
--- NOTE | 2025-02-24 09:03 | NUR ---
[facility] HAS ACCEPTED PATIENT FOR TODAY. LITO UPDATED, DR. CALDERNO UPDATED. PLAN FOR PATIENT TO GO TO [facility]. DAUGHTER WILL TRANSPORT.
[2025-02-24 10:23] VITALS: BP 156/73
--- NOTE | 2025-02-24 10:25 | NUR ---
PT SITTING UP IN CHAIR WATCHING TV WITH CHAIR ALARM ON. CALL LIGHT WITHIN REACH.
[2025-02-24 10:29] VITALS: BP 156/73
--- NOTE | 2025-02-24 11:50 | NUR ---
PT SITTING UP IN CHAIR WATCHING TV AND VISITING WITH FAMILY. CHAIR ALARM ON. WARM BLANKET AND PAIN MED PROVIDED REQUESTED. NO OTHER REQUESTS AT THIS TIME. CALL LIGHT WITHIN REACH.
--- NOTE | 2025-02-24 12:16 | NUR ---
PT SITTING UP IN CHAIR EATING LUNCH WITH FAMILY IN ROOM. CHAIR ALARM ON AND CALL LIGHT WITHIN REACH.
[2025-02-24] MEDS ORDERED: HYDROCODON-ACE1 EA11 PO (12:59)
[2025-02-24 13:17] VITALS: BP 138/70
--- NOTE | 2025-02-24 13:35 | NUR ---
ORDERS FAXED TO [facility], DAUGHTER CALLED AND NOTIFIED PATIENT IS READY FOR DC.
--- NOTE | 2025-02-24 14:05 | NUR ---
PT DC'D TO [facility]. REPORT CALLED TO RAFFI
== END 2025-02-24 13:48 | DRG 496 ==
LOC: DS 07:20 → MS 11:24 → DS 11:24 → MS 19:54
PROVIDERS: ADMIT Specialist; ATTEND Specialist
PROC: 0PSJ04Z Reposition Left Radius with Internal Fixation Device, Open Approach (ICD-10-PCS; 2025-02-21)
PROC: 0PPJ04Z Removal of Internal Fixation Device from Left Radius, Open Approach (ICD-10-PCS; principal; 2025-02-21 10:30)
DX: T84.123A Displacement of internal fixation device of bone of left forearm, initial encounter (principal); S52.502A Unspecified fracture of the lower end of left radius, initial encounter for closed fracture; Y79.2 Prosthetic and other implants, materials and accessory orthopedic devices associated with adverse incidents; G30.9 Alzheimer's disease, unspecified; F02.80 Dementia in other diseases classified elsewhere, unspecified severity, without behavioral disturbance, psychotic disturbance, mood disturbance, and anxiety; F17.200 Nicotine dependence, unspecified, uncomplicated; Z88.8 Allergy status to other drugs, medicaments and biological substances
CPT/HCPCS: 64417; 73100; 94762; 94799; 97110; 97162; 97530; A9270; C1713; J0688; J2003; J2704; J2795; J3010; J7121

== ENCOUNTER 2025-05-23 05:50 | Day surgery (SDC) | payer MEDICARE ==
[~2025-05-23] VITALS: Ht 162.6 cm; Wt 70.0 kg
[~2025-05-23 05:50] MED LIST changes: -CEFAZOLIN SODIUM 2 GM in SODIUM CHLORIDE 0.9% 100 ML IV SCH; +HYDROCODON-ACE1 EA11 PO; -IBLOOD GLUCOSE TEST STRIP 1 EA TEST VI PRN; -LIDOCAINE HCL 1% 5 ML SDV INJ ONE; +QUETIAPINE FUMA25 MG PO
[2025-05-23 06:21] VITALS: BP 134/88
[2025-05-23] MEDS ORDERED: NYSTATIN1 EAC4 MISC (06:34)
[2025-05-23 06:54] LABS: GLOMERULAR FILTRATION RATE,EST 88.0 mL/min (>60); UREA NITROGEN 20.0 mg/dL (7-18)
[2025-05-23] MEDS ORDERED: CEFAZOLIN SODIUM 2 GM in SODIUM CHLORIDE 0.9% 100 ML IV SCH (07:00)
[2025-05-23] MEDS ORDERED: LIDOCAINE HCL 1% 5 ML SDV INJ ONE (07:00)
[2025-05-23] MEDS ORDERED: IBLOOD GLUCOSE TEST STRIP 1 EA TEST VI PRN ×2 (07:00→08:15)
[2025-05-23] MEDS ORDERED: LIDOCAINE HCL 2% 5 ML SDV ONE ×2 (07:03→07:35)
[2025-05-23] MEDS ORDERED: SODIUM CHLORIDE 0.9% 20 ML IV ONE (07:04)
[2025-05-23] MEDS ORDERED: Ropivacaine HCl 0.5% 30 ML VIAL ONE (07:04)
[2025-05-23] MEDS ORDERED: DEXAMETHASONE SOD PHOS 10 MG/ML VIAL ONE (07:05)
[2025-05-23] MEDS ORDERED: fentaNYL citrate 100 MCG/2 ML VIAL ONE (07:42)
[2025-05-23] MEDS ORDERED: HYDROCODONE/ACETA 5/325 TAB PO PRN (07:45)
[2025-05-23] MEDS ORDERED: GLYCOPYRROLATE 1 MG/5 ML MDV ONE (07:58)
[2025-05-23] MEDS ORDERED: fentaNYL citrate 50 MCG/ML SDV IV PRN (08:15)
[2025-05-23] MEDS ORDERED: NALOXONE HCL 0.4 MG SYR IV PRN (08:15)
[2025-05-23] MEDS ORDERED: HYDROCODON-ACE1 EA10 PO (08:40)
--- NOTE | 2025-05-23 08:49 | NUR ---
05/23/25 0849 Grazyna,Estefany 0819 PT ARRIVED TO PACU ON 6L VIA MASK, RESP EVEN AND UNLABORED. PT ASLEEP. ORAL AIRWAY IN PLACE.
[2025-05-23] MEDS ORDERED: ALBUTEROL/IPRATROPIUM 3 ML NEB INH ONE (09:45)
[2025-05-23 10:21] VITALS: BP 144/73
--- NOTE | 2025-05-23 10:25 | NUR ---
1015- PT ARRIVES FROM PACU. PT O2 LEVELS ARE 95%. PT IS USING HER INCENTIVE SPIROMETER. PT TALKING WITH RN. PT SIPPING ON WATER. SURGICAL SITE IS CDI. BEDSIDE REPORT RECEIVED FROM ELIAN VILLATORO. BED IS LOCKED IN THE LOWEST POSITION.
[2025-05-23 11:08] VITALS: BP 129/78
--- NOTE | 2025-05-23 11:11 | NUR ---
1110- PT IS UP TO THE RESTROOM. PT WALKS WITH A STEADY AND EVEN GAIT ALTHOUGH NEEDS HELP WITH DIRECTION. PT IS ABLE TO RETURN SAFELY BACK TO ROOM WITH NO ISSUES. PT O2 SATS DECREASE TO 86% PT IS ENCOURAGED TO USE INCENTIVE SPIROMETER. O2 SATS INCREASED TO 94% AFTER INCENTIVE SPIROMETER USE. OTHER VSS. PT RESTING COMFORTABLY WITH TV ON, DRESSED AND SIPPING ON WATER.
--- NOTE | 2025-05-23 12:05 | NUR ---
1130- PACKAGING OPERATOR, WILL AT BEDSIDE LISTENING TO PT LUNGS. HE REPORTS THAT SHE IS CLEARED TO GO HOME. O2 SATS DO NOT DECREASED BELOW 92% WHILE PACKAGING OPERATOR IN ROOM. 1155- PT REQUESTING TO USE THE RESTROOM. IV REMOVED. PT IS ABLE TO GET UP AND AMBULATE SAFELY TO THE RESTROOM AND VOID. ALL PAPERWORK AND EDUCATION GIVEN. PT IS ENCOURAGED TO USE THE INCENTIVE SPIROMETER A FEW TIMES EVERY HOUR WHEN AWAKE. ALL BELONGINGS WITH PT. PT IS WHEELED OUT OF DAY SURGERY AT THIS TIME.
--- NOTE | 2025-05-25 16:37 | OR ---
[facility] [address], [place] [address] Signed DATE OF OPERATION: 05/23/2025 SURGEON: Lulu Montez MD PREOPERATIVE DIAGNOSIS: Retained hardware, left wrist. POSTOPERATIVE DIAGNOSIS: Retained hardware, left wrist. PROCEDURE PERFORMED: Removal of hardware, left wrist. OIL SPOT WASHER: None. ANESTHESIA: General. BLOOD LOSS: None. TOURNIQUET TIME: 33 minutes. BRIEF HISTORY: Sarah is an 84-year-old lady with significant Alzheimer's, who suffered a distal radius fracture. This was treated with a percutaneous pinning and a bridge plate. The fracture went on to heal uneventfully and she was ready for removal of the bridge plate and pin. Risks, benefits, and alternatives were discussed with her and her daughter and they elected to proceed. DESCRIPTION OF PROCEDURE: Once consent was obtained, she was taken to the operating room, left on the day surgery bed. Hand table was brought in and a well-padded proximal arm tourniquet was placed. The arm was then prepped and draped in a standard sterile fashion. The arm was exsanguinated using Esmarch bandage. Tourniquet inflated to 200 mmHg. The K-wire was approached first through a stab incision. The K-wire was localized, cleared of soft tissue and removed with a needle dedicated intermodal truck driver. The previous incisions for placement of the bridge plate were then marked out and incised longitudinally. Sharp dissection was Electronically Signed By: LULU MONTEZ MD 05/25/25 1637 PATIENT NAME: SARAH ZUNIGA OPERATIVE REPORT DATE OF : 44 REPORT #: [id number] PHYSICIAN: LULU MONTEZ MD PCP: LULU MONTEZ MD REPORT IS CONFIDENTIAL AND NOT TO BE RELEASED WITHOUT AUTHORIZATION [facility] [address] [place] [id number] Signed taken down to the plates and they were cleared of soft tissue using a [place] and a small curette. The four screws proximally and four screws distally were removed. The plate was then carefully loosened from the underlying scar tissue and bone and was removed distally through the distal incision. The wounds were carefully irrigated with normal saline. The screw holes were curetted and the wounds were closed with 3-0 Stratafix and Steri-Strips with Dermabond. The wounds were then dressed with Allevyn dressing, sterile cast padding, and a radial gutter splint. She tolerated the procedure well. All sponge, needle, and instrument counts were correct. Lulu Montez MD BA/SUDEEPL /[id number] Copies: ~ Electronically Signed By: LULU MONTEZ MD 05/25/25 1637 PATIENT NAME: SARAH ZUNIGA OPERATIVE REPORT DATE OF : 44 REPORT #: [id number] PHYSICIAN: LULU MONTEZ MD PCP: LULU MONTEZ MD REPORT IS CONFIDENTIAL AND NOT TO BE RELEASED WITHOUT AUTHORIZATION
== END 2025-05-23 11:55 | disposition home or self-care (01) ==
LOC: DS 05:50
PROVIDERS: Nurse Anesthetist, Certified Registered; ATTEND Specialist
PROC: 3E0T3BZ Introduction of Anesthetic Agent into Peripheral Nerves and Plexi, Percutaneous Approach (ICD-10-PCS; 2025-05-23)
PROC: 0PPJ04Z Removal of Internal Fixation Device from Left Radius, Open Approach (ICD-10-PCS; principal; 2025-05-23 07:55)
DX: S52.502D Unspecified fracture of the lower end of left radius, subsequent encounter for closed fracture with routine healing (principal); G30.9 Alzheimer's disease, unspecified; I10 Essential (primary) hypertension; Z88.8 Allergy status to other drugs, medicaments and biological substances; Z79.899 Other long term (current) drug therapy; X58.XXXD Exposure to other specified factors, subsequent encounter
CPT/HCPCS: 01830; 36415; 64417; 80048; J0688; J1100; J2003; J2704; J2795; J3010; J7121